=== PATIENT | female | born 1980 | race African-American/Black ===

== ENCOUNTER 2017-08-03 22:13 | Observation (INO) | payer MEDICARE ==
[~2017-08-03] VITALS: Ht 160 cm; Wt 95.0 kg
[~2017-08-03 22:13] MED LIST: ALPR.25 PO; AMOX875 PO; DICL75 PO; PROM25TA5 PO; ZOFR4TAB3 PO; ZOFR4TAB3 SL
[2017-08-03 22:15] VITALS: BP 142/91; PULSE 113; RESP 16; TEMP 98.6; O2SAT 100
[2017-08-03 22:30] VITALS: RESP 19; O2SAT 100
--- NOTE | 2017-08-03 22:41 | PD ---
HPI Chief Complaint: Chest Pain Time Seen by Provider: 22:35 Travel History International Travel<30 days: No Contact w/Intl Traveler<30days: No Traveled to known affect area: No History of Present Illness HPI The patient is 37 year old female who presents to the [facility] emergency department with a history of chest tightness and heaviness associated with shortness of breath that began around lunch time. The symptoms have been constant. It is getting worse with time. She has a sensation that her throat is closing, however she denies any tongue or throat swelling. She has a history of hypertension. She denies any history of diabetes mellitus or hyperlipidemia. She denies smoking. She denies any prior history of heart disease, DVT, or PE. She denies having any family history of heart disease. She denies having any fevers or chills, cough or congestion. She denies having any rashes or itching. She reports that she has had soft stool today 2. She denies having any blood in her stool or black or tarry stools. She denies ever having a sensation like this previously. She denies any new food ingestions. She denies any use of new detergents, lotions, or other products that she could be having a reaction to. She reports having a history of anxiety, however she has never had an anxiety attack similar to this. Otherwise on review of systems , she denies having any neck pain, abdominal pain, vomiting, diarrhea, urinary symptoms, or neurologic symptoms. The patient denies being on any estrogen or hormone supplements. LMP: 2 weeks ago PCP: Dr. Rodriguez[facility] Past Medical History Narrative Medical The patient's past medical history is significant for hypertension, gastroparesis, migraines, anxiety disorder. Diminished Hearing: No Gastrointestinal Disorders: Yes (GASTROPARESIS) Headaches: Yes Herniated Disk: Yes Hypertension: Yes Immunizations Current: Yes Migraines: Yes Tetanus Vaccination: Unknown Influenza Vaccination: No ?: Not LMP: 07/23/2017 : 2 Para: 1 Miscarriage: 1 : 0 Past Surgical History Narrative Surgical The patient's past surgical history is significant for c-sectionx1. Section: Yes Gynecologic Surgery: Yes () Other Surgery: Yes (CYST FROM L LEG AND L WRIST REMOVED) Social History Alcohol Use: No Tobacco Use: No Substance Use: No Allergies-Medications (Allergen,Severity, Reaction): Coded Allergies: fentanyl (Unverified Allergy, Severe, Itching, 05/06/17) ITCHING, NAUSEA/VOMITING. morphine (Unverified Adverse Reaction, Intermediate, itchy/vomit, 05/06/17) Reported Meds & Prescriptions Reported Meds & Active Scripts Active Diclofenac Sodium 75 Mg Tab 75 Mg PO BID PRN Amoxil (Amoxicillin) 875 Mg Tab 875 Mg PO BID 10 Days Zofran ODT (Ondansetron HCl) 4 Mg Tab 4 Mg PO Q6HR PRN Zofran ODT (Ondansetron HCl) 4 Mg Tab 4 Mg SL Q6H PRN FOR NAUSEA/VOMITING Phenergan 25 mg (Promethazine HCl) 25 Mg Tab 25 Mg PO Q6H PRN Phenergan 25 mg (Promethazine HCl) 25 Mg Tab 25 Mg PO Q6H PRN Xanax 0.25 Mg (Alprazolam) Alprazolam 0.25 mg Tab 2 Tab PO PRN Review of Systems Except as stated in HPI: all other systems reviewed are Neg General / Constitutional: No: Fever Eyes: No: Visual changes HENT: No: Headaches, Rhinorrhea, Congestion Cardiovascular: Positive: Chest Pain or Discomfort, Dyspnea on exertion Respiratory: Positive: Shortness of Breath Gastrointestinal: Positive: Diarrhea, Changes in Bowel Habits (softer than ususal stools x2), No: Nausea, Vomiting, Abdominal Pain Genitourinary: No: Urgency, Frequency, Dysuria Musculoskeletal: No: Pain Skin: No Rash Neurologic: No: Weakness, Focal Abnormalities, Change in Mentation, Slurred Speech, Sensory Disturbance Psychiatric: No: Depression Endocrine: No: Polydipsia Hematologic/Lymphatic: No: Easy Bruising Physical Exam Narrative General: The patient is a well-developed well-nourished female in no acute distress. Head and Neck exam: Head is normocephalic atraumatic. Eyes: EOMI, pupils are equal round and reactive to light. Nose: Midline septum with pink mucous membranes Mouth: Dentition unremarkable. Moist mucus membranes. Posterior oropharynx is not erythematous. No tonsillar hypertrophy. Uvula midline. Airway patent. No tongue or throat swelling noted. Neck: No palpable lymphadenopathy. No nuchal rigidity. No thyromegaly. Cardiovascular: Sinus tachycardia in the low 100s without murmurs, gallops, or rubs. No pulse deficit to the extremities on simultaneous auscultation and palpation of her radial artery. Lungs: Clear to auscultation bilaterally. No wheezes, rhonchi, or rales. Abdomen: Soft, without tenderness to palpation in all 4 quadrants of the abdomen. No guarding, rebound, or rigidity. Normal bowel sounds are audible. No tenderness on palpation of McBurney's point. Extremities: No clubbing, cyanosis, or edema. 2+ pulses in all 4 extremities. No calf tenderness on palpation. Negative Homans sign. No palpable cords. Back: No spinous process tenderness to palpation. No costovertebral angle tenderness to palpation. Neurologic Exam: Grossly nonfocal. Skin Exam: No rash noted. Intact skin that is warm and dry. Data Data Last Documented VS Vital Signs Date Time Temp Pulse Resp B/P (MAP) Pulse Ox O2 Delivery O2 Flow Rate FiO2 08/03/17 22:30 19 100 Nasal Cannula 2.00 08/03/17 22:15 98.6 113 Orders Orders Electrocardiogram (08/03/17 22:41) B-Type Natriuretic Peptide (08/03/17 22:41) Ckmb (Isoenzyme) Profile (08/03/17 22:41) Complete Blood Count With Diff (08/03/17 22:41) Comprehensive Metabolic Panel (08/03/17 22:41) D-Dimer (08/03/17 22:41) Magnesium (Mg) (08/03/17 22:41) Prothrombin Time / Inr (Pt) (08/03/17 22:41) Act Partial Throm Time (Ptt) (08/03/17 22:41) Troponin I (08/03/17 22:41) Lipase (08/03/17 22:41) Chest, Single Ap (08/03/17 22:41) Ecg Monitoring (08/03/17 22:41) Bilateral Bp Monitoring (08/03/17 22:41) Iv Access Insert/Monitor (08/03/17 22:41) Oximetry (08/03/17 22:41) Oxygen Administration (08/03/17 22:41) Aspirin Chew (Aspirin Chew) (08/03/17 22:45) Sodium Chloride 0.9% Flush (Ns Flush) (08/03/17 22:45) Nitroglycerin Sl (Nitrostat Sl) (08/03/17 22:45) Sodium Chlorid 0.9% 500 Ml Inj (Ns 500 M (08/03/17 22:45) Ed Urine Pregnancytest Poc (08/03/17 22:41) Ondansetron Inj (Zofran Inj) (08/03/17 22:45) CKMB (08/03/17 22:30) CKMB% (08/03/17 22:30) Ct Pulmonary Angiogram (08/03/17 23:58) Prochlorperazine Inj (Compazine Inj) (08/04/17 01:00) Iohexol 350 Inj (Omnipaque 350 Inj) (08/04/17 02:16) Admit Order (Ed Use Only) (08/04/17 02:34) Labs Laboratory Tests Test 08/03/17 22:30 White Blood Count 12.7 TH/MM3 Red Blood Count 4.88 MIL/MM3 Hemoglobin 12.4 GM/DL Hematocrit 37.6 % Mean Corpuscular Volume 77.0 FL Mean Corpuscular Hemoglobin 25.5 PG Mean Corpuscular Hemoglobin Concent 33.1 % Red Cell Distribution Width 14.6 % Platelet Count 282 TH/MM3 Mean Platelet Volume 9.4 FL Neutrophils (%) (Auto) 57.5 % Lymphocytes (%) (Auto) 34.8 % Monocytes (%) (Auto) 6.5 % Eosinophils (%) (Auto) 0.8 % Basophils (%) (Auto) 0.4 % Neutrophils # (Auto) 7.3 TH/MM3 Lymphocytes # (Auto) 4.4 TH/MM3 Monocytes # (Auto) 0.8 TH/MM3 Eosinophils # (Auto) 0.1 TH/MM3 Basophils # (Auto) 0.0 TH/MM3 CBC Comment DIFF FINAL Differential Comment Prothrombin Time 10.5 SEC Prothromb Time International Ratio 1.0 RATIO Activated Partial Thromboplast Time 28.4 SEC D-Dimer Quantitative (PE/DVT) 0.90 MG/L FEU Blood Urea Nitrogen 6 MG/DL Creatinine 0.84 MG/DL Random Glucose 120 MG/DL Total Protein 7.9 GM/DL Albumin 3.8 GM/DL Calcium Level 8.8 MG/DL Magnesium Level 1.9 MG/DL Alkaline Phosphatase 109 U/L Aspartate Amino Transf (AST/SGOT) 20 U/L Alanine Aminotransferase (ALT/SGPT) 25 U/L Total Bilirubin 0.2 MG/DL Sodium Level 139 MEQ/L Potassium Level 3.4 MEQ/L Chloride Level 106 MEQ/L Carbon Dioxide Level 23.0 MEQ/L Anion Gap 10 MEQ/L Estimat Glomerular Filtration Rate 92 ML/MIN Total Creatine Kinase 104 U/L Creatine Kinase MB LESS THAN 0.5 NG/ML Troponin I LESS THAN 0.02 NG/ML B-Type Natriuretic Peptide LESS THAN 2 PG/ML Lipase 140 U/L MDM Medical Decision Making Medical Screen Exam Complete: Yes Emergency Medical Condition: Yes Medical Record Reviewed: Yes Interpretation(s) Last Impressions CT Angiography 08/03/17 [id number] Signed Impressions: Service Date/Time: Friday, August 04, 2017 02:03 - CONCLUSION: Normal examination. Bora Szymanski MD Chest X-Ray 08/03/17 [id number] Signed Impressions: Service Date/Time: Thursday, August 03, 2017 22:44 - CONCLUSION: Normal examination. Bora Szymanski MD Differential Diagnosis Acute coronary syndrome, versus pulmonary embolism, versus allergic reaction Narrative Course During the course of the patients emergency department visit, the patients history, examination, and differential diagnosis were reviewed with the patient. The patient was placed on a cardiac monitor technician with oximetry and frequent blood pressure monitoring. The patient had IV access obtained and blood work sent for analysis. The patient had an ECG done on arrival that shows a sinus tachycardia rate of 109, nonspecific T-wave abnormalities, T waves are inverted in lead 3, V1, V2, V3, V4. QRS duration is 82 ms, QTC 378 ms. The patient was initially provided aspirin 324 mg by mouth 1, a sublingual nitroglycerin 1, Zofran 4 mg IV 1 for nausea. The patients laboratory studies were reviewed and remarkable for a white count of 12.7, hemoglobin 12.4, platelets 282 with a normal differential. CMP is remarkable for potassium of 3.4, BUNs 6, glucose 120, CPK 104, CK-MB less than 0.5, troponin I less than 0.02, BNP less than 2, lipase 140, PT 10.5, PTT 28.4, d-dimer elevated at 0.90. CTA to rule out PE was ordered. Radiology studies were reviewed and remarkable for a chest x-ray that showed no evidence of acute cardiopulmonary disease. CTA to rule out PE shows no evidence of pulmonary embolism. The patient was agreeable with the plan to proceed with a chest pain center admission for rule out serial cardiac enzyme protocol followed by stress testing. The patients results were discussed with the patient, including the plan of care. I explained that further testing and/ or monitoring is indicated based on the patients history, examination, and/ or laboratory findings. Therefore, I recommended admission for additional evaluation. The patient expressed understanding and was agreeable with this plan. The patient was admitted to the hospital in stable condition and sent to a bed under the care of the chest pain center. Diagnosis Primary Impression: Chest pain, rule out acute myocardial infarction Admitting Information Admitting Physician Requests: Observation Amina Rashid MD Aug 03, 2017 22:41
[2017-08-03] MEDS ORDERED: SODIUM CHLORIDE 0.9% FLUSH 10 ML FLUSH IVF PRN (22:45)
[2017-08-03] MEDS ORDERED: NITROGLYCERIN 0.4 MG SL 25 TABS/BTL SL ONE (22:45)
[2017-08-03] MEDS ORDERED: SODIUM CHLORID 0.9% 500 ML INJ 500 ML IV ONE (22:45)
[2017-08-03] MEDS ORDERED: ASPIRIN 81 MG CHEW TAB PO ONE (22:45)
[2017-08-03] MEDS ORDERED: ONDANSETRON HCL 4 MG/2 ML VIAL IV PUSH ONE (22:45)
[2017-08-03 23:04] LABS: AUTOMATED NEUTROPHIL # 7.3 TH/MM3 (1.8-7.7); BASOPHIL % 0.4 % (0.0-2.0); EOSINOPHIL # 0.1 TH/MM3 (0-0.4); EOSINOPHIL % 0.8 % (0.0-4.0); HEMATOCRIT 37.6 % (35.0-46.0); HEMO FLAGS DIFF FINAL; LYMPH % 34.8 % (9.0-44.0); LYMPHOCYTE # 4.4 TH/MM3 (1.0-4.8); MEAN CORPUSCULAR HEMOGLOBIN 25.5 PG (27.0-34.0); MEAN CORPUSCULAR HGB CONC 33.1 % (32.0-36.0); MONO % 6.5 % (0.0-8.0); NEUT % 57.5 % (16.0-70.0); PLATELET COUNT 282 TH/MM3 (150-450); RED BLOOD COUNT 4.88 MIL/MM3 (4.00-5.30); RED CELL DISTRIBUTION WIDTH 14.6 % (11.6-17.2); WHITE BLOOD COUNT 12.7 TH/MM3 (4.0-11.0)
--- NOTE | 2017-08-03 23:04 | RADRPT ---
EXAM DATE/TIME: 08/03/2017 22:44 [facility] COMPARISON: No previous studies available for comparison. INDICATIONS : Chest pain MEDICAL HISTORY : Migraines. SURGICAL HISTORY : None. ENCOUNTER: Initial ACUITY: 1 day PAIN SCORE: 6/10 LOCATION: chest FINDINGS: A single view of the chest demonstrates the lungs to be symmetrically aerated without evidence of mas s, infiltrate or effusion. The cardiomediastinal contours are unremarkable. Osseous structures are intact. CONCLUSION: Normal examination. Bora Szymanski MD on August 03, 2017 at 23:03 Board Certified Radiologist. This report was verified electronically.
[2017-08-03 23:31] LABS: ALKALINE PHOSPHATASE 109 U/L (45-117); ALT (GPT) 25 U/L (10-53); CREATINE KINASE 104 U/L (26-192); TOTAL BILIRUBIN ADULT 0.2 MG/DL (0.2-1.0)
[2017-08-03 23:33] LABS: ANION GAP 10 MEQ/L (5-15); AST (GOT) 20 U/L (15-37); BLOOD UREA NITROGEN 6 MG/DL (7-18); CHLORIDE 106 MEQ/L (98-107); GLOMERULAR FILTRATION RATE 92 ML/MIN (>89); MAGNESIUM 1.9 MG/DL (1.5-2.5); POTASSIUM 3.4 MEQ/L (3.5-5.1); SODIUM (NA) 139 MEQ/L (136-145)
[2017-08-03 23:36] LABS: APTT (PATIENT) 28.4 SEC (24.3-30.1); PROTHROMBIN TIME - PATIENT 10.5 SEC (9.8-11.6)
[2017-08-03 23:44] LABS: CKMB LESS THAN 0.5 NG/ML (0.5-3.6)
[2017-08-04] VITALS (7 sets, daily range): BP systolic 115–126; BP diastolic 68–82; PULSE 66–104; RESP 18–22; TEMP 97.6–98.8; O2SAT 96–100
[2017-08-04] MEDS ORDERED: PROCHLORPERAZINE INJ 10 MG/2 ML VIAL IV PUSH ONE (01:00)
[2017-08-04] MEDS ORDERED: IOHEXOL 350 MG/ML 10 ML VIAL (for RAD DIAG) IVCONTRAST ONE (02:16)
--- NOTE | 2017-08-04 02:32 | RADRPT ---
EXAM DATE/TIME: 08/04/2017 02:03 [facility] COMPARISON: No previous studies available for comparison. INDICATIONS : Chest pain and shortness of breath. IV CONTRAST: 75 cc Omnipaque 350 (iohexol) IV RADIATION DOSE: 14.09 CTDIvol (mGy) MEDICAL HISTORY : Hypertension. SURGICAL HISTORY : section. ENCOUNTER: Initial ACUITY: 1 day PAIN SCALE: 6/10 LOCATION: chest TECHNIQUE: Volumetric scanning of the chest was performed using a pulmonary embolism protocol MIP images were re constructed. Using automated exposure control and adjustment of the mA and/or kV according to patien t size, radiation dose was kept as low as reasonably achievable to obtain optimal diagnostic quality images. DICOM format image data is available electronically for review and comparison. Follow-up recommendations for detected pulmonary nodules are based at a minimum on nodule size and pa tient risk factors according to Fleischner Society Guidelines. FINDINGS: PULMONARY ARTERIES: No filling defects are seen in the pulmonary arteries through the segmental level. LUNGS: There is no consolidation or pneumothorax . No concerning pulmonary nodule is visualized. PLEURAE: There is no pleural thickening or pleural effusion. MEDIASTINUM: There is good visualization of the great vessels of the middle mediastinum. No evidence of mediastin al or hilar adenopathy/mass. MUSCULOSKELETAL: Within normal limits for patient age. MISCELLANEOUS: The visualized upper abdominal organs demonstrate no acute abnormality. CONCLUSION: Normal examination. Bora Szymanski MD on August 04, 2017 at 2:30 Board Certified Radiologist. This report was verified electronically.
[2017-08-04] MEDS ORDERED: SODIUM CHLORIDE 0.9% FLUSH 10 ML FLUSH IV FLUSH PRN (03:45)
[2017-08-04 05:54] LABS: CREATINE KINASE 90 U/L (26-192)
[2017-08-04] MEDS ORDERED: NITROGLYCERIN 0.4 MG SL 25 TABS/BTL SL PRN (08:00)
[2017-08-04] MEDS ORDERED: ACETAMINOPHEN 500 MG CPLT PO PRN (08:00)
[2017-08-04] MEDS ORDERED: ONDANSETRON HCL 4 MG/2 ML VIAL IV PUSH PRN (08:00)
--- NOTE | 2017-08-04 08:56 | HHI.HP ---
HPI Primary Care Physician Rishabh Rodriguez M.D. Chief Complaint Chest pain History of Present Illness 37-year-old female with history of hypertension and anxiety presents to emergency room for further evaluation of chest pain. Onset yesterday afternoon 1 PM. Pain came on quickly. Initially, described as sharp. As day continued pain changed characteristic, described as "someone sitting on my chest." Location right anterior chest and substernally. No radiation of pain. Associated symptoms of dyspnea, like throat closing up, and nausea. Denied vomiting, or diaphoresis. No known precipitating factors. Relieving factors aspirin given in ER. Denies similar pain in the past. Denies any recent illness, recent travel, or history of DVT or PE. Initially felt she was getting a cold as her fianc currently sick. Duration lasted all day, therefore came to ER for further evaluation. Currently reports point tenderness to right anterior chest. No particular movement, position, or deep breathing makes pain better or worse. Review of Systems General: No fatigue,weakness, fever, chills, recent illness, or change in appetite. Has been in general [facility] health. HEENT: No ROSADO, no vision changes, no nasal congestion or drainage CV: As stated above. No current chest pain or pressure. RESP: Feelings of throat "closing up" as resolved. No SOB, cough, or sputum production. GI: Nausea resolved. No vomiting, bowel changes, or diarrhea. : No dysuria, urgency, frequency, freq, UTIs, or history of kidney stones. 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 Denies chance of . EXT: No lower leg edema MS: No discomfort or change in ROM NEURO: No LOC, motor/sensory deficits PSYCH: History of anxiety. No current anxiety. No depression or situational stress. SKIN: No rashes, no concerning lesions Past Family Social History Allergies: Coded Allergies: fentanyl (Unverified Allergy, Severe, Itching, 05/06/17) ITCHING, NAUSEA/VOMITING. morphine (Unverified Adverse Reaction, Intermediate, itchy/vomit, 05/06/17) Past Medical History Hypertension, migraines, anxiety, gastroparesis Past Surgical History Reported Medications Reported Meds & Active Scripts Active Lisinopril 10 mg by mouth daily Xanax 0.25 Mg (Alprazolam) Alprazolam 0.25 mg Tab 2 Tab PO PRN Active Ordered Medications Current Medications Medications (Trade) Dose Ordered Sig/Magdaleno Route Start Time Stop Time Status Last Admin (NS Flush) 2 ml UNSCH PRN IVF 08/03/17 22:45 (NS Flush) 2 ml UNSCH PRN IV FLUSH 08/04/17 03:45 (NS Flush) 2 ml BID IV FLUSH 08/04/17 09:00 (Tylenol) 500 mg Q4H PRN PO 08/04/17 08:00 (Zofran Inj) 4 mg Q6H PRN IV PUSH 08/04/17 08:00 (Nitrostat Sl) 0.4 mg Q5M PRN SL 08/04/17 08:00 (Aspirin) 325 mg DAILY PO 08/04/17 09:00 Family History Noncontributory for early onset cardiovascular disease. Social History Known hypertension. No known diabetes, hyperlipidemia, or coronary artery disease. Lifelong nonsmoker. Denies any alcohol or illegal drug use. Engaged, 11-year-old daughter. Past cardiac testing None Physical Exam Vital Signs Vital Signs Date Time Temp Pulse Resp B/P (MAP) Pulse Ox O2 Delivery O2 Flow Rate FiO2 08/04/17 07:22 98.1 84 20 115/68 (84) 97 08/04/17 05:37 98.8 104 18 124/82 (96) 97 08/04/17 05:18 08/04/17 03:47 96 08/03/17 22:30 19 100 Nasal Cannula 2.00 08/03/17 22:30 100 Nasal Cannula 2.00 08/03/17 22:15 98.6 113 16 142/91 (108) 100 Physical Exam GENERAL: Alert WN, WD, NAD, pleasant, in [place] female HEAD: NC, AT EYES: Sclera clear, conjunctiva without injection ENT: Mucous membranes pink and moist CV: RRR, without murmur, rub, gallop, no JVD, S1-S2 no S3-S4. Right anterior chest localized point tenderness easily reproduced. RESP: Clear lungs throughout bilateral, no crackles, wheeze, rhonchi, symmetrical chest rise, nonlabored, able to speak in full sentences ABD: Soft, NT, ND, no masses, positive bowel tones EXT: Pulses +24, no dependent edema MS: Normal tone 4 extremities, nontender, no obvious deformities, full range of motion NEURO: CN II through CN XII grossly intact, motor strength 5/5 PSYCH: A+O 3, pleasant affect, appropriate speech, insight and judgment SKIN: Normal turgor, normal texture, no lesions, no rashes, even hair distribution Laboratory Laboratory Tests Test 08/03/17 22:30 08/04/17 04:45 White Blood Count 12.7 Red Blood Count 4.88 Hemoglobin 12.4 Hematocrit 37.6 Mean Corpuscular Volume 77.0 Mean Corpuscular Hemoglobin 25.5 Mean Corpuscular Hemoglobin Concent 33.1 Red Cell Distribution Width 14.6 Platelet Count 282 Mean Platelet Volume 9.4 Neutrophils (%) (Auto) 57.5 Lymphocytes (%) (Auto) 34.8 Monocytes (%) (Auto) 6.5 Eosinophils (%) (Auto) 0.8 Basophils (%) (Auto) 0.4 Neutrophils # (Auto) 7.3 Lymphocytes # (Auto) 4.4 Monocytes # (Auto) 0.8 Eosinophils # (Auto) 0.1 Basophils # (Auto) 0.0 CBC Comment DIFF FINAL Differential Comment Prothrombin Time 10.5 Prothromb Time International Ratio 1.0 Activated Partial Thromboplast Time 28.4 D-Dimer Quantitative (PE/DVT) 0.90 Blood Urea Nitrogen 6 Creatinine 0.84 Random Glucose 120 Total Protein 7.9 Albumin 3.8 Calcium Level 8.8 Magnesium Level 1.9 Alkaline Phosphatase 109 Aspartate Amino Transf (AST/SGOT) 20 Alanine Aminotransferase (ALT/SGPT) 25 Total Bilirubin 0.2 Sodium Level 139 Potassium Level 3.4 Chloride Level 106 Carbon Dioxide Level 23.0 Anion Gap 10 Estimat Glomerular Filtration Rate 92 Total Creatine Kinase 104 90 Creatine Kinase MB LESS THAN 0.5 Troponin I LESS THAN 0.02 LESS THAN 0.02 B-Type Natriuretic Peptide LESS THAN 2 Lipase 140 Result Diagram: 08/03/17222908/03/172229 Imaging Last Impressions CT Angiography 08/03/17 [id number] Signed Impressions: Service Date/Time: Friday, August 04, 2017 02:03 - CONCLUSION: Normal examination. Bora Szymanski MD Chest X-Ray 08/03/171 Signed Impressions: Service Date/Time: Thursday, August 03, 2017 22:44 - CONCLUSION: Normal examination. Bora Szymanski MD Course EKG Normal sinus rhythm, normal axis, T-wave inversion anterior, lateral leads Caprini VTE Risk Assessment Caprini VTE Risk Assessment: No/Low Risk (score <= 1) Caprini Risk Assessment Model Point Value = 1 Point Value = 2 Point Value = 3 Point Value = 5 Age 41-60 Minor surgery BMI > 25 kg/m2 Swollen legs Varicose veins or History of unexplained or recurrent spontaneous Oral contraceptives or hormone replacement Sepsis (< 1 month) Serious lung disease, including pneumonia (< 1 month) Abnormal pulmonary function Acute myocardial infarction Congestive heart failure (< 1 month) History of inflammatory bowel disease Medical patient at bed rest Age 61-74 Arthroscopic surgery Major open surgery (> 45 min) Laparoscopic surgery (> 45 min) Malignancy Confined to bed (> 72 hours) Immobilizing plaster cast Central venous access Age >= 75 History of VTE Family history of VTE Factor V Leiden Prothrombin [id number] Lupus anticoagulant Anticardiolipin antibodies Elevated serum homocysteine Heparin-induced thrombocytopenia Other congenital or acquired thrombophilia Stroke (< 1 month) Elective arthroplasty Hip, pelvis, or leg fracture Acute spinal cord injury (< 1 month) Prophylaxis Regimen Total Risk Factor Score Risk Level Prophylaxis Regimen 0-1 Low Early ambulation 2 Moderate Order ONE of the following: *Sequential Compression Device (SCD) *Heparin 5000 units SQ BID 3-4 Higher Order ONE of the following medications: *Heparin 5000 units SQ TID *Enoxaparin/Lovenox 40 mg SQ daily (WT < 150 kg, CrCl > 30 mL/min) *Enoxaparin/Lovenox 30 mg SQ daily (WT < 150 kg, CrCl > 10-29 mL/min) *Enoxaparin/Lovenox 30 mg SQ BID (WT < 150 kg, CrCl > 30 mL/min) AND/OR *Sequential Compression Device (SCD) 5 or more Highest Order ONE of the following medications: *Heparin 5000 units SQ TID (Preferred with Epidurals) *Enoxaparin/Lovenox 40 mg SQ daily (WT < 150 kg, CrCl > 30 mL/min) *Enoxaparin/Lovenox 30 mg SQ daily (WT < 150 kg, CrCl > 10-29 mL/min) *Enoxaparin/Lovenox 30 mg SQ BID (WT < 150 kg, CrCl > 30 mL/min) AND *Sequential Compression Device (SCD) Assessment and Plan Assessment and Plan #1 Atypical chest pain-admitted to chest pain center. Rule out with 3 sets of EKGs and cardiac enzymes. Will be seen and evaluated by Dr. Jorge Osorio. Discussed possible stress testing later this morning after last troponin and EKG completed and assessment by polystyrene bead molder. Patient agreeable to plan of care. Reassurance provided as symptoms not likely to be cardiac related due to length of discomfort followed by point tenderness right anterior chest. #2 Hypertension-continues lisinopril 40mg daily, encouraged following a low sodium diet and increasing daily activity. Jennifer Chahal Aug 04, 2017 08:56
[2017-08-04] MEDS ORDERED: ASPIRIN 325 MG TAB PO SCH (09:00)
[2017-08-04] MEDS ORDERED: SODIUM CHLORIDE 0.9% FLUSH 10 ML FLUSH IV FLUSH SCH (09:00)
[2017-08-04] MEDS ORDERED: LISINOPRIL 10 MG TAB PO ONE (10:15)
[2017-08-04] MEDS ORDERED: POTASSIUM CHLORIDE 20 MEQ CONTROLLED RELEASE TAB PO ONE (11:00)
[2017-08-04 11:01] LABS: BETA HCG QUANT LESS THAN 1 MIU/ML (0-5)
[2017-08-04 11:22] LABS: CREATINE KINASE 83 U/L (26-192)
--- NOTE | 2017-08-04 13:31 | EKG ---
Date Performed: 08/04/2017 Time Performed: 05:12:11 PTAGE: 37 years EKG: SINUS TACHYCARDIA NONSPECIFIC T-WAVE ABNORMALITY ABNORMAL RHYTHM ECG PREVIOUS TRACING : 08/03/2017 23.58 Since previous tracing, no significant change noted DOCTOR: Jorge Osorio Interpretating Date/Time 08/04/2017 13:31:14
--- NOTE | 2017-08-04 13:36 | EKG ---
Date Performed: 08/03/2017 Time Performed: 22:34:28 PTAGE: 37 years EKG: SINUS TACHYCARDIA MODERATE T-WAVE ABNORMALITY,nonspecific ABNORMAL ECG PREVIOUS TRACING : 07/01/2012 00.42 Since previous tracing, no significant change noted DOCTOR: Jorge Osorio Interpretating Date/Time 08/04/2017 13:36:03
--- NOTE | 2017-08-04 13:44 | EKG ---
Date Performed: 08/04/2017 Time Performed: 07:15:15 PTAGE: 37 years EKG: Sinus rhythm MODERATE T-WAVE ABNORMALITY, CONSIDER ANTERIOR ISCHEMIA ABNORMAL ECG PREVIOUS TRACING : 08/03/2017 22.34 Since previous tracing, no significant change noted DOCTOR: Jorge Osorio Interpretating Date/Time 08/04/2017 13:42:32
--- NOTE | 2017-08-04 14:44 | TR ---
Date Performed: 08/04/2017 Time Performed: 13:59:18 DOCTOR: Jorge Osorio DRUG LIST: CLINICAL HISTORY: REASON FOR TEST: REASON FOR ENDING: OBSERVATION: CONCLUSION: Topher protocol completed. Stopped sec to leg fatigue and exceeding target heart rate . Maximum VJ=375 Target HR Koxwfsno=181.0% Maximum FJ=800/80 Total Exercise Time=7:00. No reprod ches t pain. No ectopy. Baseline twave changes. Normal bp response. Recovery quick and unremarkable. Nucle ar images pending. COMMENTS: Conclusion: Normal treadmill exercise. No evidence of ischemia. Radionuclide was inje cted one minute prior to ending test. Nuclear imaging and interpretation are pending.
--- NOTE | 2017-08-04 15:17 | RADRPT ---
EXAM DATE/TIME: 08/04/2017 13:11 [place] COMPARISON: No previous studies available for comparison. INDICATIONS : Substernal chest pain with dyspnea. Angina DOSE: 25.4 mCi Tc99m Myoview at stress 8.2 mCi Tc99m Myoview at rest REST HEART RATE: 89 BPM TARGET HEART RATE: 156 BPM MAX HEART RATE: 183 BPM REST BLOOD PRESSURE: 118/70 mmHg MAX BLOOD PRESSURE: 142/78 mmHg EJECTION FRACTION: 70% MEDICAL HISTORY : Hypertension. Gastroesophageal reflux disease. SURGICAL HISTORY : section. ENCOUNTER: Initial ACUITY: 1 day PAIN SCALE: 6/10 LOCATION: Substernal chest TECHNIQUE: The patient underwent upright treadmill exercise in the chest pain center. Continuous ECG tracing wa s monitored during stress. Gated SPECT imaging was performed after stress, and conventional SPECT im aging was performed at rest. The examination was performed on a SPECT/CT scanner, both attenuation-c orrected and non-corrected datasets were reviewed. FINDINGS: DISTRIBUTION: The maximum perfused segment at stress is in the inferior wall. PERFUSION STUDY: The pattern of perfusion at stress is within normal limits. GATED STUDY: There is intact wall motion and thickening without hypokinetic or dyskinetic segments. CONCLUSION: 1. No reversible defects observed to suggest acute ischemia. RISK CATEGORY: Low Rubens Mensah Jr., MD on August 04, 2017 at 15:13 Board Certified Radiologist. This report was verified electronically.
--- NOTE | 2017-08-04 15:41 | HHI.DCPOC ---
Discharge Care Plan Diagnosis: (1) Atypical chest pain Goals to Promote Your Health * To prevent worsening of your condition and complications * To maintain your health at the optimal level Directions to Meet Your Goals Take your medications as prescribed Follow your dietary instruction Follow activity as directed Keep your appointments as scheduled Take your immunizations and boosters as scheduled If your symptoms worsen call your PCP, if no PCP go to Urgent Care Center or Emergency Room Smoking is Dangerous to Your Health. Avoid second hand smoke Call the 24-hour hour crisis hotline for domestic abuse at Jennifer Chahal Aug 04, 2017 15:41
[2017-08-04] MEDS ORDERED: PROMETHAZINE HCL 25 MG TAB PO PRN (15:45)
[2017-08-04] MEDS ORDERED: LISI10TA3 PO (15:54)
[2017-08-04] MEDS ORDERED: ALPRAZolam 0.5 MG TAB PO PRN (18:00)
== END 2017-08-04 18:12 | disposition home or self-care (01) ==
LOC: NEPE 22:13 → NEDA 08-04 02:35 → NEPFCDU 08-04 05:16
DX: R07.89 Other chest pain (principal); R06.02 Shortness of breath; I10 Essential (primary) hypertension; K31.84 Gastroparesis; G43.909 Migraine, unspecified, not intractable, without status migrainosus; F41.9 Anxiety disorder, unspecified; R73.09 Other abnormal glucose; E87.6 Hypokalemia; R94.31 Abnormal electrocardiogram [ECG] [EKG]
CPT/HCPCS: 71010; 71275; 78452; 80053; 82550; 82552; 83690; 83735; 83880; 84484; 84702; 84703; 85025; 85379; 85610; 85730; 93005; 93017; 96361; 96374; 96375; 99285; A9502; G0378; J0780; J2405; J7040; Q9967